=== PATIENT | male | born 1955 | race Caucasian/White ===

== ENCOUNTER → 2017-02-02 | Outpatient (CLI) | payer BC ==
--- NOTE | 2017-02-02 09:20 | DIAGNOSTIC IMAGING REPORT ---
RIGHT ANKLE 3 VIEWS HISTORY: Right ankle pain. COMPARISON: None. FINDINGS: No acute fracture or dislocation. Mild cortical thickening involving the distal shaft of the right fibula favors an old, healed fracture. Soft tissues are unremarkable. No radiopaque foreign bodies. IMPRESSION: Old, healed fracture within the distal shaft of the right fibula. No acute fracture or dislocation within the right ankle. Electronically signed by: Osmin Eldridge M.D. 02/02/2017 9:18 AM Dictated Date/Time: 02/02/2017 9:16 AM
== END | disposition home or self-care (01) ==
LOC: C.RAD1850 09:06
PROVIDERS: ATTEND Physician Assistant
DX: M25.571 Pain in right ankle and joints of right foot (principal)

== ENCOUNTER → 2018-01-17 | Outpatient (CLI) | payer OTHER | END | disposition home or self-care (01) | LOC: C.PATHSPEC 17:12 | PROVIDERS: ATTEND Surgery | DX: L72.0 Epidermal cyst (principal) ==